=== PATIENT | male | born 1995 | race African-American/Black ===

== ENCOUNTER 2016-08-17 09:53 | Emergency (ER) | payer OTHER ==
[~2016-08-17] VITALS: Ht 172.7 cm; Wt 63.5 kg
[~2016-08-17 09:53] MED LIST: EC-N500T7 PO; ZOFR4TAB3 SL
[2016-08-17 09:55] VITALS: BP 141/97; PULSE 82; RESP 16; TEMP 98; O2SAT 99
[2016-08-17] MEDS ORDERED: MAGICADU2 SWISH-SWAL (10:35)
[2016-08-17] MEDS ORDERED: CLIN1CAP5 PO (10:35)
[2016-08-17] MEDS ORDERED: IBUP800T23 PO (10:35)
--- NOTE | 2016-08-17 10:35 | PD ---
HPI Chief Complaint: Oral / Dental Pain or Problem Time Seen by Provider: 10:26 Travel History International Travel<30 days: No Contact w/Intl Traveler<30days: No Traveled to known affect area: No History of Present Illness HPI 21-year-old male presents to emergency Department with left lower jaw pain and swelling over the past 3 days. Patient states he went to the dentist, they were unable to give him anything. He has not taken anything for it. He states the pain is about an 8/10 currently. He states it's getting worse, but he denies fever, chills, or difficulty swallowing. No headache is present. He has no drainage. He has no known drug allergies. PFSH Past Medical History Asthma: Yes Diminished Hearing: No Immunizations Current: Yes Social History Alcohol Use: No Tobacco Use: No Substance Use: Yes Allergies-Medications (Allergen,Severity, Reaction): Coded Allergies: No Known Allergies (Verified , 12/25/13) Reported Meds & Prescriptions Reported Meds & Active Scripts Active Zofran ODT (Ondansetron HCl) 4 Mg Tab 4 Mg SL Q6 PRN FOR NAUSEA/VOMITING Naprosyn-Ec (Naproxen) 500 Mg Tab 500 Mg PO BID PRN Review of Systems Except as stated in HPI: all other systems reviewed are Neg General / Constitutional: No: Fever Eyes: No: Visual changes HENT: Positive: Dental Difficulties, No: Headaches, Sore Throat, Rhinitis, Rhinorrhea, Gingival Bleeding, Earache Cardiovascular: No: Chest Pain or Discomfort Respiratory: No: Shortness of Breath Gastrointestinal: No: Abdominal Pain Genitourinary: No: Dysuria Musculoskeletal: No: Pain Skin: No Rash Neurologic: No: Weakness Psychiatric: No: Depression Endocrine: No: Polydipsia Hematologic/Lymphatic: No: Easy Bruising Physical Exam Narrative GENERAL: Patient appears in mild distress. SKIN: Warm and dry. Normal color. Normal turgor. No signs of cellulitis. HEAD: Atraumatic. Normocephalic. Patient has swelling and tenderness over the left lower jaw. EYES: Pupils equal and round. No scleral icterus. No injection or drainage. ENT: No nasal bleeding or discharge. Mucous membranes pink and moist. Teeth actually. Fairly good repair. No obvious caries or broken teeth. Pharynx is normal. No drainable dental abscess is appreciated. NECK: Trachea midline. Supple nontender without lymphadenopathy. CARDIOVASCULAR: Regular rate and rhythm. RESPIRATORY: No accessory muscle use. Clear to auscultation. Breath sounds equal bilaterally. MUSCULOSKELETAL: Extremities without clubbing, cyanosis, or edema. No obvious deformities. NEUROLOGICAL: Awake and alert. No obvious cranial nerve deficits. Motor grossly within normal limits. Five out of 5 muscle strength in the arms and legs. Normal speech. PSYCHIATRIC: Appropriate mood and affect; insight and judgment normal. Data Data Last Documented VS Vital Signs Date Time Temp Pulse Resp B/P Pulse Ox O2 Delivery O2 Flow Rate FiO2 08/17/16 09:55 98.0 82 16 141/97 99 Room Air MDM Medical Decision Making Medical Screen Exam Complete: Yes Emergency Medical Condition: Yes Differential Diagnosis Dental pain. Dental abscess. Need for antibiotics. Narrative Course Patient is medically stable at time of exam. Patient is given clindamycin here milligrams 4 times a day 7 days. Patient is given ibuprofen 800 mg 3 times daily with food #30. Patient is given Magic mouthwash 5-10 mL's every 2 hours when necessary dental pain. 120 mL's with 1 refill. Patient is given information about local dental resources. Patient should follow-up with his primary care physician or dentist as soon as possible. Diagnosis Primary Impression: Dental abscess Referrals: Dentist Patient Instructions: General Instructions Additional Instructions: Patient is medically stable at time of exam. Patient is given clindamycin here milligrams 4 times a day 7 days. Patient is given ibuprofen 800 mg 3 times daily with food #30. Patient is given Magic mouthwash 5-10 mL's every 2 hours when necessary dental pain. 120 mL's with 1 refill. Patient is given information about local dental resources. Patient should follow-up with his primary care physician or dentist as soon as possible. Med/Other Pt SpecificInfo: Prescription(s) given Disposition: DISCHARGE HOME Condition: Stable Frankie Lee Aug 17, 2016 10:34
== END 2016-08-17 10:49 | disposition home or self-care (01) ==
LOC: NEPB 09:53
DX: K04.7 Periapical abscess without sinus (principal)
CPT/HCPCS: 99283